=== PATIENT | male | born 1960 | race Caucasian/White ===

== ENCOUNTER 2019-04-11 05:31 | Inpatient (IN) | payer OTHER ==
[2019-04-06 15:24] VITALS: BMI 26.4
[2019-04-11] VITALS (36 sets, daily range): BP systolic 105–162; BP diastolic 64–98; PULSE 68–108; RESP 9–30; Ht 185.4 cm; Wt 86.0 kg
[~2019-04-11] VITALS: Ht 185.4 cm; Wt 86.0 kg
[2019-04-11] MEDS ORDERED: PROPOFOL 20 ML ONE (06:52)
[2019-04-11] MEDS ORDERED: FENTAnyl 50 MCG/ML VIAL ONE (06:52)
[2019-04-11] MEDS ORDERED: EPHEDrine 25 MG/5 ML SYG ONE (06:52)
[2019-04-11] MEDS ORDERED: PHENYLephrine (100 MCG/ML) 10ML SYG ONE (06:52)
[2019-04-11] MEDS ORDERED: ROCURONIUM 50 MG INJ ONE (06:52)
[2019-04-11] MEDS ORDERED: MIDAZOLAM 1 MG/ML 2 ML INJ ONE (06:52)
[2019-04-11] MEDS ORDERED: LABETALOL HCL 20MG INJ IV PRN (07:00)
[2019-04-11] MEDS ORDERED: DIPHENHYDRAMINE 50 MG INJ IV PRN ×2 (07:00→09:00)
[2019-04-11] MEDS ORDERED: HYDROmorphONE 1 MG/5 ML IV SYRINGE IV PRN ×3 (07:00)
[2019-04-11] MEDS ORDERED: FENTAnyl 50 MCG/ML VIAL IV PRN ×3 (07:00)
[2019-04-11] MEDS ORDERED: METOCLOPRAMIDE 10 MG INJ IV PRN (07:00)
[2019-04-11] MEDS ORDERED: MEPERIDINE 25 MG INJ IV PRN (07:00)
[2019-04-11] MEDS ORDERED: ONDANSETRON 4 MG INJ IV PRN (07:00)
[2019-04-11] MEDS ORDERED: LACTATED RINGER'S 1,000 ML IV SCH (07:00)
[2019-04-11] MEDS ORDERED: VANCOMYCIN 1 GM 250 ML IVPB SCH (07:00)
[2019-04-11] MEDS ORDERED: EPHEDrine 25 MG/5 ML SYG IV PRN (07:00)
[2019-04-11] MEDS ORDERED: OXYCODONE/ACETAMINOPHEN (5/325) TAB PO PRN ×2 (07:00)
[2019-04-11] MEDS ORDERED: HEPARIN 1000 UNITS/ML 10 ML INJ ONE (07:12)
[2019-04-11] MEDS ORDERED: GELATIN SIZE 100 SPONGE ONE (07:12)
[2019-04-11] MEDS ORDERED: BUPIVACAINE 0.5%/EPI (SDV) 10 ML INJ ONE (07:12)
[2019-04-11] MEDS ORDERED: THROMBIN 20,000 UNIT VIAL ONE (07:12)
[2019-04-11] MEDS ORDERED: CA CHLORIDE 10% 10 ML SYRINGE ONE (07:12)
[2019-04-11] MEDS ORDERED: LABETALOL HCL 20MG INJ ONE (07:14)
[2019-04-11] MEDS ORDERED: ONDANSETRON 4 MG INJ ONE (07:25)
[2019-04-11] MEDS ORDERED: METOCLOPRAMIDE 10 MG INJ ONE (07:25)
[2019-04-11] MEDS ORDERED: DEXAMETHASONE 4 MG/ML 5 ML INJ ONE (07:25)
[2019-04-11] MEDS ORDERED: HEMOSTATIC MATRIX SYG ZFS ONE (07:56)
[2019-04-11] MEDS ORDERED: POLYMYXIN/BACITRACIN 1L IRRIG ONE (07:57)
[2019-04-11] MEDS ORDERED: BUPIVACAINE 0.25% (MPF) 30 ML INJ ONE (08:08)
[2019-04-11] MEDS ORDERED: SUGAMMADEX SODIUM 200 MG/2 ML VIAL IV ONE (08:43)
[2019-04-11] MEDS ORDERED: CYCLOBENZAPRINE 10 MG TAB PO PRN (09:00)
[2019-04-11] MEDS ORDERED: DIPHENHYDRAMINE 25 MG CAP PO PRN (09:00)
[2019-04-11] MEDS ORDERED: HYDROmorphONE 0.5 MG/0.5 ML SYG IV PRN (09:00)
[2019-04-11] MEDS ORDERED: HYDROCODONE/APAP (10/325) TAB PO PRN (09:00)
[2019-04-11] MEDS ORDERED: BISACODYL 10 MG SUPP PR PRN (09:00)
[2019-04-11] MEDS ORDERED: NALOXONE (0.4 MG/ML) INJ IV PRN (09:00)
[2019-04-11] MEDS: DOCUSATE SODIUM 100 MG CAP PO SCH ×2 (09:00→21:19)
[2019-04-11] MEDS ORDERED: AL HYDROX/MG HYDROX/SIMETH 30 ML CUP PO PRN (09:00)
[2019-04-11] MEDS ORDERED: CEPASTAT LOZENGE MT PRN (09:00)
[2019-04-11] MEDS: D5W-0.45 NACL + KCL 20 MEQ 1,000 ML IV SCH ×2 (12:08→16:29)
[2019-04-11] MEDS: HYDROCODONE/APAP (10/325) TAB PO PRN ×2 (12:19→16:23)
[2019-04-11] MEDS: ONDANSETRON 4 MG INJ IV PRN ×2 (15:01→22:49)
[2019-04-11] MEDS: VANCOMYCIN 1 GM (PMX) 250 ML IVPB SCH (17:11)
[2019-04-11] MEDS: ACETAMINOPHEN 325 MG TAB PO PRN ×2 (17:15→21:19)
[2019-04-12] MEDS: D5W-0.45 NACL + KCL 20 MEQ 1,000 ML IV SCH (04:43)
[2019-04-12] MEDS: VANCOMYCIN 1 GM (PMX) 250 ML IVPB SCH (06:18)
[2019-04-12 07:32] VITALS: BP 153/79; PULSE 84; RESP 19
[2019-04-12] MEDS: DOCUSATE SODIUM 100 MG CAP PO SCH (08:49)
[2019-04-12] MEDS: HYDROCODONE/APAP (10/325) TAB PO PRN ×2 (08:49→12:58)
== END 2019-04-12 14:24 | disposition home or self-care (01) | DRG 520 ==
LOC: REC 05:31 → MS1 11:44
PROVIDERS: ADMIT Specialist; ATTEND Specialist
PROC: 4A11X4G Monitoring of Peripheral Nervous Electrical Activity, Intraoperative, External Approach (ICD-10-PCS; 2019-04-11)
PROC: 0ST40ZZ Resection of Lumbosacral Disc, Open Approach (ICD-10-PCS; principal; 2019-04-11 07:00)
DX: M51.17 Intervertebral disc disorders with radiculopathy, lumbosacral region (principal); E78.5 Hyperlipidemia, unspecified
CPT/HCPCS: 72020; 80048; 83735; 85025; 86999; 88304; 97116; 97162; 97530; J1100; J1644; J2175; J2250; J2370; J2405; J2765; J3010; J3370; J3480; J7120